=== PATIENT | female | born 1990 | race Two or more races ===

== ENCOUNTER 2020-04-03 04:21 | Emergency (ER) | payer OTHER ==
[~2020-04-03] VITALS: Ht 177.8 cm; Wt 173.0 kg
[2020-04-03 04:31] VITALS: BP 162/94
[2020-04-03] MEDS ORDERED: DEXAMETHASONE 4MG/ML 1ML VIAL IV ONE (08:15)
== END 2020-04-03 08:56 | disposition home or self-care (01) ==
LOC: ER 04:21
DX: R51 Headache (principal); Z88.6 Allergy status to analgesic agent
CPT/HCPCS: 96374; 99283; J1100